=== PATIENT | female | born 1960 | race American Indian/Alaskan Native ===

== ENCOUNTER 2016-11-17 21:41 | Emergency (ER) | payer MEDICAID ==
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
[2016-11-18] MEDS ORDERED: FLEXERIL PO ONE (03:50)
[2016-11-18] MEDS ORDERED: MOTRIN PO ONE (03:50)
[2016-11-18 04:29] VITALS: BP 139/80
== END 2016-11-18 04:26 | disposition home or self-care (01) ==
LOC: ED 21:41 → EDBD 21:41 → ED 11-18 04:26
DX: M62.830 Muscle spasm of back (principal); M25.562 Pain in left knee; M54.2 Cervicalgia; I10 Essential (primary) hypertension; Z88.6 Allergy status to analgesic agent; Y04.8XXA Assault by other bodily force, initial encounter; Y93.89 Activity, other specified; Y92.89 Other specified places as the place of occurrence of the external cause; Y99.8 Other external cause status
CPT/HCPCS: 99282

== ENCOUNTER 2017-04-30 13:05 | Inpatient (IN) | payer MEDICAID ==
[2017-04-30] MEDS ORDERED: NACL 0.9% 1000 ML 1,000 ML ONE (13:13)
[2017-04-30] MEDS ORDERED: QUELICIN ONE (13:14)
[2017-04-30] MEDS ORDERED: AMIDATE IV ONE ×2 (13:14→13:26)
[2017-04-30] MEDS ORDERED: QUELICIN IV ONE (13:26)
[2017-04-30] MEDS ORDERED: ARTIFICIAL TEARS OPHTH OINT OU PRN ×2 (13:27→23:25)
[2017-04-30] MEDS ORDERED: VASELINE LIP THERAPY TP PRN ×2 (13:27→23:25)
[2017-04-30] MEDS ORDERED: ACTIDOSE-AQUA PO ONE (13:28)
[2017-04-30] MEDS ORDERED: ACTIDOSE SORBITOL PO ONE (13:28)
--- NOTE | 2017-04-30 13:32 | Emergency Department Report ---
ED Psych HPI - General Stated Complaint: MH EVAL Time Seen by Provider: 04/30/17 13:05 Source: EMS Mode of arrival: Stretcher Limitations: Altered Mental Status - History of Present Illness Initial Comments: 56-year-old female with a past medical history of hypertension and schizophrenia presents to the hospital with intentional overdose. EMS reports that patient was speaking to them upon arrival. She states around noon she took a handful of Zanaflex and Seroquel. Exact number of tablets unknown. Medication bottles available in the ED. Seroquel 200 mg tablets filled 04/30 30 tab now has 57 tabs in bottle. Zanaflex 4mg filled 04/21 30 tab now has 2 tablets in bottle pt should have about 20-21 tabs left in bottle. Patient became more sedated a route to the hospital as per EMS despite receiving Narcan 2 mg. Patient also hypotensive. IV fluids initiated prior to arrival. Daughter arrives to the ED after intubation and states that her mother wanted her to cosign for a loan. When her daughter refused she stated "I'm not going to need a loan where I am going" she took pills and informed her family member to call the ambulance if she does not wake up in one hour. They called after she informed them that she took the pills. He reported there were also pills on the floor in the home - Related Data Home Medications Medication Instructions Recorded Confirmed Last Taken Gabapentin [Neurontin] 300 mg PO Q8HR 04/30/17 04/30/17 Unknown Losartan/Hydrochlorothiazide 1 each PO DAILY 04/30/17 04/30/17 Unknown [Losartan-Hctz 50-12.5 mg Tab] QUEtiapine [SEROquel] 200 mg PO DAILY 04/30/17 04/30/17 Unknown amLODIPine [Norvasc] 5 mg PO DAILY 04/30/17 04/30/17 Unknown tiZANidine [Zanaflex] 4 mg PO DAILY 04/30/17 04/30/17 Unknown Allergies Allergy/AdvReac Type Severity Reaction Status Date / Time hydrocodone Allergy Itching Verified 11/17/16 21:47 ED Review of Systems ROS: Stated complaint: MH EVAL Other details as noted in HPI ED Past Medical Hx - Past Medical History Hx Hypertension: Yes - Surgical History Hx Cholecystectomy: Yes Additional Surgical History: UFE, - Social History Smoking Status: Never Smoker Substance Use Type: None - Medications Home Medications: Home Medications Medication Instructions Recorded Confirmed Last Taken Type Gabapentin [Neurontin] 300 mg PO Q8HR 04/30/17 04/30/17 Unknown History Losartan/Hydrochlorothiazide 1 each PO DAILY 04/30/17 04/30/17 Unknown History [Losartan-Hctz 50-12.5 mg Tab] QUEtiapine [SEROquel] 200 mg PO DAILY 04/30/17 04/30/17 Unknown History amLODIPine [Norvasc] 5 mg PO DAILY 04/30/17 04/30/17 Unknown History tiZANidine [Zanaflex] 4 mg PO DAILY 04/30/17 04/30/17 Unknown History ED Physical Exam - Other Other exam information: General: Limited by current mental status Head exam: Atraumatic, normocephalic Eyes exam: Pupils pinpoint and reactive ENT: Moist mucous membrane Neck exam: Normal inspection Respiratory exam: Clear to auscultation bilateral, no wheezes, rales, crackles Cardiovascular: Normal rate and rhythm Abdomen: Soft, nondistended, and nontender Extremity: Full range of motion normal inspection no deformity Back: Normal Inspection, full range of motion, no tenderness Neurologic: Lethargic, no localization of withdrawal pain. Patient does not open eyes to pain or voice. No spontaneous movement. With a GCS less than 8 seconds intubation is warranted Psychiatric: Unresponsive Skin: Warm, dry, intact ED Course Vital Signs 04/30/17 04/30/17 04/30/17 13:05 13:08 13:15 Temperature 98.1 F Pulse Rate 78 78 77 Respiratory 12 11 L Rate Blood Pressure 89/54 85/49 91/53 O2 Sat by Pulse 100 99 100 Oximetry 04/30/17 04/30/17 04/30/17 13:30 13:45 14:00 Temperature Pulse Rate 84 116 H 92 H Respiratory 16 16 16 Rate Blood Pressure 106/63 107/59 99/61 O2 Sat by Pulse 100 Oximetry 04/30/17 04/30/17 04/30/17 14:15 14:30 14:45 Temperature Pulse Rate 104 H 94 H 90 Respiratory 16 16 16 Rate Blood Pressure 104/64 107/66 109/74 O2 Sat by Pulse 100 100 100 Oximetry 04/30/17 04/30/17 04/30/17 15:00 15:15 15:30 Temperature Pulse Rate 88 90 117 H Respiratory 16 16 16 Rate Blood Pressure 109/72 118/75 101/61 O2 Sat by Pulse 100 100 Oximetry 04/30/17 04/30/17 04/30/17 15:45 16:00 16:15 Temperature Pulse Rate 95 H 107 H 99 H Respiratory 16 16 16 Rate Blood Pressure 118/67 114/58 120/60 O2 Sat by Pulse 100 100 100 Oximetry 04/30/17 04/30/17 16:30 16:53 Temperature Pulse Rate 99 H 110 H Respiratory 16 16 Rate Blood Pressure 121/64 107/57 O2 Sat by Pulse 100 Oximetry - Reevaluation(s) Reevaluation #1: 04/30/17 18:02 Blood pressure remained stable after IV fluid bolus Pt intubated without IV sedation and remains sedated at this time - Consultations Consultation #1: 04/30/17 13:45 case d/w Johanna with poison control Seroquel can cause seizures recommended benzos as needed Zanaflex can cause hypotension and respiratory depression. Symptomatic treatment advised Avoid antipsychotic (Haldol/Geodon) Recommended 4 hour postingestion aspirin and Tylenol - Intubation Time Out Performed: Yes Sedative: Etomidate Paralytic: Succinylcholine Laryngoscope: Braulio Size: 3 ET Tube Size: 7.5 Tube Secured Depth (cm): 23 Tube Secured Location: lips Tube Placement Confirmation: visualized tube passing t, equal breath sounds bilat, no breath sounds over epi, confirmation by capnometr Patient Tolerated Procedure: well Intubation Complications: none ED Medical Decision Making - Lab Data Result diagrams: 04/30/17 13:50 04/30/17 13:50 Lab Results 04/30/17 04/30/17 04/30/17 Range/Units 13:48 13:48 13:50 WBC 3.9 L (4.5-11.0) K/mm3 RBC 3.27 L (3.65-5.03) M/mm3 Hgb 10.9 (10.1-14.3) gm/dl Hct 32.0 (30.3-42.9) % MCV 98 H (79-97) fl MCH 33 H (28-32) pg MCHC 34 (30-34) % RDW 13.2 (13.2-15.2) % Plt Count 161 (140-440) K/mm3 Lymph % (Auto) 46.5 H (13.4-35.0) % [place] % (Auto) 12.2 H (0.0-7.3) % Eos % (Auto) 4.3 (0.0-4.3) % Baso % (Auto) 0.8 (0.0-1.8) % Lymph # 1.8 (1.2-5.4) K/mm3 [place] # 0.5 (0.0-0.8) K/mm3 Eos # 0.2 (0.0-0.4) K/mm3 Baso # 0.0 (0.0-0.1) K/mm3 Seg Neutrophils % 36.2 L (40.0-70.0) % Seg Neutrophils # 1.4 L (1.8-7.7) K/mm3 PT (12.2-14.9) Sec. INR (0.87-1.13) APTT (24.2-36.6) Sec. POC ABG pH (7.35-7.45) POC ABG pCO2 (35-45) POC ABG pO2 (80-105) POC ABG HCO3 POC ABG Total CO2 POC ABG O2 Sat POC ABG Base Excess FiO2 % Sodium (137-145) mmol/L Potassium (3.6-5.0) mmol/L Chloride (98-107) mmol/L Carbon Dioxide (22-30) mmol/L Anion Gap mmol/L BUN (7-17) mg/dL Creatinine (0.7-1.2) mg/dL Estimated GFR ml/min BUN/Creatinine Ratio % Glucose (65-100) mg/dL Calcium (8.4-10.2) mg/dL Magnesium (1.7-2.3) mg/dL Total Bilirubin (0.1-1.2) mg/dL AST (5-40) units/L ALT (7-56) units/L Alkaline Phosphatase (35-129) units/L Total Creatine Kinase (30-135) units/L CK-MB (CK-2) (0.0-4.0) ng/mL CK-MB (CK-2) Rel Index (0-4) Troponin T (0.00-0.029) ng/mL Total Protein (6.3-8.2) g/dL Albumin (3.9-5) g/dL Albumin/Globulin Ratio % Urine Color Yellow (Yellow) Urine Turbidity Clear (Clear) Urine pH 7.0 (5.0-7.0) Ur Specific [place] 1.008 (1.003-1.030) Urine Protein <15 mg/dl (Negative) mg/dL Urine Glucose (UA) Neg (Negative) mg/dL Urine Ketones Neg (Negative) mg/dL Urine Blood Neg (Negative) Urine Nitrite Neg (Negative) Urine Bilirubin Neg (Negative) Urine Urobilinogen < 2.0 (<2.0) mg/dL Ur Leukocyte Esterase Neg (Negative) Urine WBC (Auto) < 1.0 (0.0-6.0) /HPF Urine RBC (Auto) 1.0 (0.0-6.0) /HPF U Epithel Cells (Auto) < 1.0 (0-13.0) /HPF Salicylates (2.8-20.0) mg/dL Urine Opiates Screen Presumptive negative Urine Methadone Screen Presumptive negative Acetaminophen (10.0-30.0) ug/mL Ur Barbiturates Screen Presumptive negative Ur Phencyclidine Scrn Presumptive negative Ur Amphetamines Screen Presumptive negative U Benzodiazepines Scrn Presumptive negative Urine Cocaine Screen Presumptive negative U Marijuana (THC) Screen Presumptive negative Drugs of Abuse Note Disclamer 04/30/17 04/30/17 04/30/17 Range/Units 13:50 13:50 13:50 WBC (4.5-11.0) K/mm3 RBC (3.65-5.03) M/mm3 Hgb (10.1-14.3) gm/dl Hct (30.3-42.9) % MCV (79-97) fl MCH (28-32) pg MCHC (30-34) % RDW (13.2-15.2) % Plt Count (140-440) K/mm3 Lymph % (Auto) (13.4-35.0) % [place] % (Auto) (0.0-7.3) % Eos % (Auto) (0.0-4.3) % Baso % (Auto) (0.0-1.8) % Lymph # (1.2-5.4) K/mm3 [place] # (0.0-0.8) K/mm3 Eos # (0.0-0.4) K/mm3 Baso # (0.0-0.1) K/mm3 Seg Neutrophils % (40.0-70.0) % Seg Neutrophils # (1.8-7.7) K/mm3 PT 13.2 (12.2-14.9) Sec. INR 0.95 (0.87-1.13) APTT 30.5 (24.2-36.6) Sec. POC ABG pH (7.35-7.45) POC ABG pCO2 (35-45) POC ABG pO2 (80-105) POC ABG HCO3 POC ABG Total CO2 POC ABG O2 Sat POC ABG Base Excess FiO2 % Sodium 142 (137-145) mmol/L Potassium 3.2 L (3.6-5.0) mmol/L Chloride 104.8 (98-107) mmol/L Carbon Dioxide 23 (22-30) mmol/L Anion Gap 17 mmol/L BUN 13 (7-17) mg/dL Creatinine 0.5 L (0.7-1.2) mg/dL Estimated GFR > 60 ml/min BUN/Creatinine Ratio 26 % Glucose 123 H (65-100) mg/dL Calcium 7.6 L (8.4-10.2) mg/dL Magnesium 2.10 (1.7-2.3) mg/dL Total Bilirubin 0.30 (0.1-1.2) mg/dL AST 47 H (5-40) units/L ALT 26 (7-56) units/L Alkaline Phosphatase 51 (35-129) units/L Total Creatine Kinase 93 (30-135) units/L CK-MB (CK-2) < 1.0 (0.0-4.0) ng/mL CK-MB (CK-2) Rel Index 1.0 (0-4) Troponin T < 0.010 (0.00-0.029) ng/mL Total Protein 5.7 L (6.3-8.2) g/dL Albumin 3.5 L (3.9-5) g/dL Albumin/Globulin Ratio 1.6 % Urine Color (Yellow) Urine Turbidity (Clear) Urine pH (5.0-7.0) Ur Specific [place] (1.003-1.030) Urine Protein (Negative) mg/dL Urine Glucose (UA) (Negative) mg/dL Urine Ketones (Negative) mg/dL Urine Blood (Negative) Urine Nitrite (Negative) Urine Bilirubin (Negative) Urine Urobilinogen (<2.0) mg/dL Ur Leukocyte Esterase (Negative) Urine WBC (Auto) (0.0-6.0) /HPF Urine RBC (Auto) (0.0-6.0) /HPF U Epithel Cells (Auto) (0-13.0) /HPF Salicylates < 0.3 L (2.8-20.0) mg/dL Urine Opiates Screen Urine Methadone Screen Acetaminophen (10.0-30.0) ug/mL Ur Barbiturates Screen Ur Phencyclidine Scrn Ur Amphetamines Screen U Benzodiazepines Scrn Urine Cocaine Screen U Marijuana (THC) Screen Drugs of Abuse Note 04/30/17 04/30/17 04/30/17 Range/Units 15:33 15:33 15:37 WBC (4.5-11.0) K/mm3 RBC (3.65-5.03) M/mm3 Hgb (10.1-14.3) gm/dl Hct (30.3-42.9) % MCV (79-97) fl MCH (28-32) pg MCHC (30-34) % RDW (13.2-15.2) % Plt Count (140-440) K/mm3 Lymph % (Auto) (13.4-35.0) % [place] % (Auto) (0.0-7.3) % Eos % (Auto) (0.0-4.3) % Baso % (Auto) (0.0-1.8) % Lymph # (1.2-5.4) K/mm3 [place] # (0.0-0.8) K/mm3 Eos # (0.0-0.4) K/mm3 Baso # (0.0-0.1) K/mm3 Seg Neutrophils % (40.0-70.0) % Seg Neutrophils # (1.8-7.7) K/mm3 PT (12.2-14.9) Sec. INR (0.87-1.13) APTT (24.2-36.6) Sec. POC ABG pH 7.410 (7.35-7.45) POC ABG pCO2 38.4 (35-45) POC ABG pO2 197 H (80-105) POC ABG HCO3 24.3 POC ABG Total CO2 25 POC ABG O2 Sat 100 POC ABG Base Excess 0 FiO2 50 % Sodium (137-145) mmol/L Potassium (3.6-5.0) mmol/L Chloride (98-107) mmol/L Carbon Dioxide (22-30) mmol/L Anion Gap mmol/L BUN (7-17) mg/dL Creatinine (0.7-1.2) mg/dL Estimated GFR ml/min BUN/Creatinine Ratio % Glucose (65-100) mg/dL Calcium (8.4-10.2) mg/dL Magnesium (1.7-2.3) mg/dL Total Bilirubin (0.1-1.2) mg/dL AST (5-40) units/L ALT (7-56) units/L Alkaline Phosphatase (35-129) units/L Total Creatine Kinase (30-135) units/L CK-MB (CK-2) (0.0-4.0) ng/mL CK-MB (CK-2) Rel Index (0-4) Troponin T (0.00-0.029) ng/mL Total Protein (6.3-8.2) g/dL Albumin (3.9-5) g/dL Albumin/Globulin Ratio % Urine Color (Yellow) Urine Turbidity (Clear) Urine pH (5.0-7.0) Ur Specific [place] (1.003-1.030) Urine Protein (Negative) mg/dL Urine Glucose (UA) (Negative) mg/dL Urine Ketones (Negative) mg/dL Urine Blood (Negative) Urine Nitrite (Negative) Urine Bilirubin (Negative) Urine Urobilinogen (<2.0) mg/dL Ur Leukocyte Esterase (Negative) Urine WBC (Auto) (0.0-6.0) /HPF Urine RBC (Auto) (0.0-6.0) /HPF U Epithel Cells (Auto) (0-13.0) /HPF Salicylates < 0.3 L (2.8-20.0) mg/dL Urine Opiates Screen Urine Methadone Screen Acetaminophen 15.0 (10.0-30.0) ug/mL Ur Barbiturates Screen Ur Phencyclidine Scrn Ur Amphetamines Screen U Benzodiazepines Scrn Urine Cocaine Screen U Marijuana (THC) Screen Drugs of Abuse Note - EKG Data -: EKG Interpreted by Me EKG shows normal: sinus rhythm, axis (40), intervals (qtc 463), QRS complexes ( 81), ST-T waves (no stemi) Rate: normal (97) - EKG Data When compared to previous EKG there are: previous EKG unavailable - Radiology Data Radiology results: report reviewed Read by radiologist Chest x-ray: Unremarkable AP chest. ET tube terminates 3.8 cm superior to the jose miguel - Medical Decision Making pt remains sedated Ct head naf no coingestions Pt intubated for airway protection Iv KCL ordered for mild hypokalemia abg without acid base disturbance Pt will be admitted for further treatment. Remains obtunded but BP stable - Differential Diagnosis overdose, suicide attempt, ICH, encephalopathy Critical Care Time: No Critical care attestation.: If time is entered above; I have spent that time in minutes in the direct care of this critically ill patient, excluding procedure time. ED Disposition Clinical Impression: Suicide attempt by substance overdose, Obtunded, Hypokalemia Disposition: DC-01 TO HOME OR SELFCARE Is pt being admited?: Yes Does the pt Need Aspirin: No Condition: Fair Time of Disposition: 18:06 (Dr Adorno/hosp)
[2017-04-30] MEDS ORDERED: NACL 0.9% 500 ML IV SCH ×2 (14:00→23:45)
[2017-04-30 14:09] LABS: Bilirubin,Urine NEG (Negative); Blood,Urine NEG (Negative); Color,Urine Yellow (Yellow); Nitrite,Urine NEG (Negative); Protein,Urine <15 mg/dL mg/dL (Negative); Urobilinogen,Urine < 2.0 mg/dL (<2.0); WBC,Urine < 1.0 /HPF (0.0-6.0)
[2017-04-30 14:36] LABS: Basophils % (Auto) 0.8 % (0.0-1.8); Eosinophils # (Auto) 0.2 K/mm3 (0.0-0.4); Eosinophils % (Auto) 4.3 % (0.0-4.3); Hemoglobin 10.9 gm/dl (10.1-14.3); Lymphocytes # (Auto) 1.8 K/mm3 (1.2-5.4); Lymphocytes % (Auto) 46.5 % (13.4-35.0); Mean Corpuscular HGB Conc 34 % (30-34); Mean Corpuscular Hemoglobin 33 pg (28-32); Mean Corpuscular Volume 98 fl (79-97); Monocytes # (Auto) 0.5 K/mm3 (0.0-0.8); Monocytes % (Auto) 12.2 % (0.0-7.3); Platelet Count 161 K/mm3 (140-440); Red Blood Count 3.27 M/mm3 (3.65-5.03); Red Cell Distribution Width 13.2 % (13.2-15.2)
[2017-04-30 14:47] LABS: Amphetamine Screen,Urine PRESUMPTIVE NEGATIVE; Benzodiazepines Screen,Urine PRESUMPTIVE NEGATIVE; Cannabinoid Screen,Urine PRESUMPTIVE NEGATIVE; Cocaine Screen,Urine PRESUMPTIVE NEGATIVE; Methadone Screen,Urine PRESUMPTIVE NEGATIVE; Opiate Screen,Urine PRESUMPTIVE NEGATIVE
[2017-04-30 14:52] LABS: Alanine Aminotransferase 26 units/L (7-56); Albumin 3.5 g/dL (3.9-5); BUN/Creatinine Ratio 26; Blood Urea Nitrogen 13 mg/dL (7-17); Calcium 7.6 mg/dL (8.4-10.2); Hemolysis Index 28
[2017-04-30 14:55] LABS: Creatine Kinase MB < 1.0 ng/mL (0.0-4.0)
[2017-04-30 15:25] LABS: INR 0.95 (0.87-1.13)
[2017-04-30 15:26] LABS: Partial Thromboplastin Time 30.5 Sec. (24.2-36.6)
--- NOTE | 2017-04-30 15:43 | XRay Report ---
AP CHEST: HISTORY: Endotracheal tube placement The endotracheal tube terminates 3.8 cm superior to the jose miguel. P view of the chest demonstrates a normal mediastinal and cardiac contour with clear lungs and normal bony and soft tissue structures. IMPRESSION: Unremarkable AP chest.
[2017-04-30] MEDS ORDERED: KCL 10MEQ/100ML 10 MEQ/100 ML BAG IV SCH (17:00)
--- NOTE | 2017-04-30 17:23 | Cat Scan Report ---
FINAL REPORT EXAM: CT HEAD/BRAIN WO CON HISTORY: ams, overdose TECHNIQUE: CT examination of the head without IV contrast PRIORS: None. FINDINGS: Slight mucosal thickening maxillary and ethmoid sinuses. No acute air-fluid level visualized in the included air-filled sinuses. Bone windows demonstrate no acute fracture. The brain is without mass, mass effect, hemorrhage, or acute infarct. There is no extra-axial intracranial bleed, brain bleed, or midline shift. The ventricles and sulci are age-appropriate. IMPRESSION: No acute CVA, intracranial bleed, or brain mass
[2017-04-30] MEDS ORDERED: KCL 40 MEQ in NACL 0.9% 500 ML 500 ML IV ONE (17:45)
[2017-04-30] MEDS ORDERED: NACL 0.9% 1000 ML 1,000 ML IV ONE (18:45)
--- NOTE | 2017-04-30 23:15 | History and Physical Report ---
History of Present Illness Date of examination: 04/30/17 Date of admission: 04/30/17 18:55 Chief complaint: Intentional drug overdose / suicide attempt History of present illness: 56-year-old female with a past medical history of hypertension and schizophrenia presents to the hospital with intentional overdose. EMS reports that patient was speaking to them upon arrival. She states around noon she took a handful of Zanaflex and Seroquel. Exact number of tablets unknown. Medication bottles available in the ED. Seroquel 200 mg tablets filled 04/30 30 tab now has 57 tabs in bottle. Zanaflex 4mg filled 04/21 30 tab now has 2 tablets in bottle pt should have about 20-21 tabs left in bottle. Patient became more sedated a route to the hospital as per EMS despite receiving Narcan 2 mg. Patient also hypotensive. IV fluids initiated prior to arrival. Daughter arrives to the ED after intubation and states that her mother wanted her to cosign for a loan. When her daughter refused she stated "I'm not going to need a loan where I am going" she took pills and informed her family member to call the ambulance if she does not wake up in one hour. They called after she informed them that she took the pills. He reported there were also pills on the floor in the home Past History Past Medical History: hypertension Past Surgical History: cholecystectomy Medications and Allergies Allergies Allergy/AdvReac Type Severity Reaction Status Date / Time hydrocodone Allergy Itching Verified 11/17/16 21:47 Home Medications Medication Instructions Recorded Confirmed Last Taken Type Gabapentin [Neurontin] 300 mg PO Q8HR 04/30/17 04/30/17 Unknown History Losartan/Hydrochlorothiazide 1 each PO DAILY 04/30/17 04/30/17 Unknown History [Losartan-Hctz 50-12.5 mg Tab] QUEtiapine [SEROquel] 200 mg PO DAILY 04/30/17 04/30/17 Unknown History amLODIPine [Norvasc] 5 mg PO DAILY 04/30/17 04/30/17 Unknown History tiZANidine [Zanaflex] 4 mg PO DAILY 04/30/17 04/30/17 Unknown History Active Meds: Active Medications Hydrophilic Ointment (Vaseline Lip Therapy) 1 applic TP Q2HR PRN PRN Reason: Dry Lips Multi-Ingred Cream/Lotion/Oil/Oint (Artificial Tears Ophth Oint) 1 applic OU Q4HR PRN PRN Reason: Dry Eye(s) Sodium Chloride (Nacl 0.9% 500 Ml) 1 ml IV DIRECT DREW Last Admin: 04/30/17 14:22 Dose: 1 ml Review of Systems ROS unobtainable: due to endotracheal tube Exam - Physical Exam Narrative exam: General: the patient is intubated HEENT: Pinpoint pupils patient has oral ET tube Head is atraumatic normocephalic ,. Neck: no JVD no thyromegaly or lymphadenopathy. Heart: Regular rate and rhythm no murmurs or gallops. S1 and S2 normal. PMI not displaced. Lungs: On mechanical ventilation. But otherwise clear to auscultation bilaterally. No rales rhonchi wheezing. Abdomen: Soft, nondistended, and nontender. Normoactive bowel sounds. No hepatosplenomegaly. No abdominal masses or bruit appreciated. Extremities: No cyanosis/clubbing/ edema. Musculoskeletal: No obvious deformity or swelling Neurological: Limited exam. Patient is sedated and intubated Skin: Warm and dry no rashes or bruises. Psychiatric: Could not be assessed due to chemical sedation Vascular system: No lymphadenopathy. Distal pulses 2+ bilaterally. - Constitutional Vitals: Temp Pulse Resp BP Pulse Ox 98.1 F 95 H 16 115/72 100 04/30/17 13:05 04/30/17 21:12 04/30/17 19:30 04/30/17 21:12 04/30/17 21:12 Results - Labs CBC & Chem 7: 04/30/17 13:50 04/30/17 13:50 Labs: Laboratory Last Values WBC 3.9 K/mm3 (4.5-11.0) L 04/30/17 13:50 RBC 3.27 M/mm3 (3.65-5.03) L 04/30/17 13:50 Hgb 10.9 gm/dl (10.1-14.3) 04/30/17 13:50 Hct 32.0 % (30.3-42.9) 04/30/17 13:50 MCV 98 fl (79-97) H 04/30/17 13:50 MCH 33 pg (28-32) H 04/30/17 13:50 MCHC 34 % (30-34) 04/30/17 13:50 RDW 13.2 % (13.2-15.2) 04/30/17 13:50 Plt Count 161 K/mm3 (140-440) 04/30/17 13:50 Lymph % (Auto) 46.5 % (13.4-35.0) H 04/30/17 13:50 [place] % (Auto) 12.2 % (0.0-7.3) H 04/30/17 13:50 Eos % (Auto) 4.3 % (0.0-4.3) 04/30/17 13:50 Baso % (Auto) 0.8 % (0.0-1.8) 04/30/17 13:50 Lymph # 1.8 K/mm3 (1.2-5.4) 04/30/17 13:50 [place] # 0.5 K/mm3 (0.0-0.8) 04/30/17 13:50 Eos # 0.2 K/mm3 (0.0-0.4) 04/30/17 13:50 Baso # 0.0 K/mm3 (0.0-0.1) 04/30/17 13:50 Seg Neutrophils % 36.2 % (40.0-70.0) L 04/30/17 13:50 Seg Neutrophils # 1.4 K/mm3 (1.8-7.7) L 04/30/17 13:50 PT 13.2 Sec. (12.2-14.9) 04/30/17 13:50 INR 0.95 (0.87-1.13) 04/30/17 13:50 APTT 30.5 Sec. (24.2-36.6) 04/30/17 13:50 POC ABG pH 7.410 (7.35-7.45) 04/30/17 15:37 POC ABG pCO2 38.4 (35-45) 04/30/17 15:37 POC ABG pO2 197 (80-105) H 04/30/17 15:37 POC ABG HCO3 24.3 04/30/17 15:37 POC ABG Total CO2 25 04/30/17 15:37 POC ABG O2 Sat 100 04/30/17 15:37 POC ABG Base Excess 0 04/30/17 15:37 FiO2 50 % 04/30/17 15:37 Sodium 142 mmol/L (137-145) 04/30/17 13:50 Potassium 3.2 mmol/L (3.6-5.0) L 04/30/17 13:50 Chloride 104.8 mmol/L (98-107) 04/30/17 13:50 Carbon Dioxide 23 mmol/L (22-30) 04/30/17 13:50 Anion Gap 17 mmol/L 04/30/17 13:50 BUN 13 mg/dL (7-17) 04/30/17 13:50 Creatinine 0.5 mg/dL (0.7-1.2) L 04/30/17 13:50 Estimated GFR > 60 ml/min 04/30/17 13:50 BUN/Creatinine Ratio 26 % 04/30/17 13:50 Glucose 123 mg/dL (65-100) H 04/30/17 13:50 Calcium 7.6 mg/dL (8.4-10.2) L 04/30/17 13:50 Magnesium 2.10 mg/dL (1.7-2.3) 04/30/17 13:50 Total Bilirubin 0.30 mg/dL (0.1-1.2) 04/30/17 13:50 AST 47 units/L (5-40) H 04/30/17 13:50 ALT 26 units/L (7-56) 04/30/17 13:50 Alkaline Phosphatase 51 units/L (35-129) 04/30/17 13:50 Total Creatine Kinase 93 units/L (30-135) 04/30/17 13:50 CK-MB (CK-2) < 1.0 ng/mL (0.0-4.0) 04/30/17 13:50 CK-MB (CK-2) Rel Index 1.0 (0-4) 04/30/17 13:50 Troponin T < 0.010 ng/mL (0.00-0.029) 04/30/17 13:50 Total Protein 5.7 g/dL (6.3-8.2) L 04/30/17 13:50 Albumin 3.5 g/dL (3.9-5) L 04/30/17 13:50 Albumin/Globulin Ratio 1.6 % 04/30/17 13:50 Urine Color Yellow (Yellow) 04/30/17 13:48 Urine Turbidity Clear (Clear) 04/30/17 13:48 Urine pH 7.0 (5.0-7.0) 04/30/17 13:48 Ur Specific [place] 1.008 (1.003-1.030) 04/30/17 13:48 Urine Protein <15 mg/dl mg/dL (Negative) 04/30/17 13:48 Urine Glucose (UA) Neg mg/dL (Negative) 04/30/17 13:48 Urine Ketones Neg mg/dL (Negative) 04/30/17 13:48 Urine Blood Neg (Negative) 04/30/17 13:48 Urine Nitrite Neg (Negative) 04/30/17 13:48 Urine Bilirubin Neg (Negative) 04/30/17 13:48 Urine Urobilinogen < 2.0 mg/dL (<2.0) 04/30/17 13:48 Ur Leukocyte Esterase Neg (Negative) 04/30/17 13:48 Urine WBC (Auto) < 1.0 /HPF (0.0-6.0) 04/30/17 13:48 Urine RBC (Auto) 1.0 /HPF (0.0-6.0) 04/30/17 13:48 U Epithel Cells (Auto) < 1.0 /HPF (0-13.0) 04/30/17 13:48 Salicylates < 0.3 mg/dL (2.8-20.0) L 04/30/17 15:33 Urine Opiates Screen Presumptive negative 04/30/17 13:48 Urine Methadone Screen Presumptive negative 04/30/17 13:48 Acetaminophen < 15.0 ug/mL (10.0-30.0) 04/30/17 19:00 Ur Barbiturates Screen Presumptive negative 04/30/17 13:48 Ur Phencyclidine Scrn Presumptive negative 04/30/17 13:48 Ur Amphetamines Screen Presumptive negative 04/30/17 13:48 U Benzodiazepines Scrn Presumptive negative 04/30/17 13:48 Urine Cocaine Screen Presumptive negative 04/30/17 13:48 U Marijuana (THC) Screen Presumptive negative 04/30/17 13:48 Drugs of Abuse Note Disclamer 04/30/17 13:48 - Imaging and Cardiology EKG: other (EKG shows normal: sinus rhythm, axis (40), intervals (qtc 463), QRS complexes (81), ST-T waves (no stemi)) Imaging and Cardiology: X-ray showing no acute pulmonary process Assessment and Plan Assessment and plan: Assessment and plan - * Suicide attempt * Intentional drug overdose * Hypokalemia * Hypertension Plan - Admit to ICU continue mechanical ventilation and chemical sedation Start patient on propofol drip Mental health eval been medically stable Blood pressures are currently stable monitor vital signs closely and give when necessary hydralazine if needed or indicated Monitor CBC and electrolytes Repeat his potassium and monitor Replace all electrolytes when necessary as per protocol DVT GI prophylaxis as ordered Monitor and follow the patient closely
[2017-04-30] MEDS ORDERED: D50W (25GM) Syringe IV PRN (23:24)
[2017-04-30] MEDS ORDERED: PROVENTIL IH PRN (23:24)
[2017-04-30] MEDS ORDERED: D5NS 1,000 ML IV SCH (23:45)
[2017-04-30] MEDS ORDERED: DIPRIVAN 10 MG/ML 1,000 MG/100 ML BOTTLE IV SCH (23:45)
--- NOTE | 2017-05-01 00:10 | XRay Report ---
FINAL REPORT PROCEDURE: XR CHEST 1V AP TECHNIQUE: Chest radiograph anteroposterior view. CPT 03787 HISTORY: ETT placement COMPARISON: No prior studies are available for comparison. FINDINGS: Heart: Normal. Mediastinum/Vessels: Normal. Lungs/Pleural space: There is patchy bibasilar atelectasis or infiltrate. No effusion or pneumothorax is seen.. Bony thorax: No acute osseous abnormality. Life support devices: The endotracheal tube tip projects 3 centimeters superior to the jose miguel. The nasogastric tube is coiled in the stomach. IMPRESSION: Endotracheal tube tip projects 3 centimeters superior to the jose miguel.
[2017-05-01] MEDS ORDERED: DUONEB *Not for PRN Use IH ONE (01:11)
[2017-05-01] MEDS: DUONEB *Not for PRN Use IH SCH ×2 (01:16→08:10)
[2017-05-01 03:20] LABS: Alanine Aminotransferase 27 units/L (7-56); Albumin 3.9 g/dL (3.9-5); BUN/Creatinine Ratio 15; Blood Urea Nitrogen 6 mg/dL (7-17); Calcium 7.7 mg/dL (8.4-10.2); Hemolysis Index 14
[2017-05-01 03:21] LABS: Basophils % (Auto) 0.4 % (0.0-1.8); Eosinophils # (Auto) 0.1 K/mm3 (0.0-0.4); Hematocrit 36.6 % (30.3-42.9); Hemoglobin 12.4 gm/dl (10.1-14.3); Lymphocytes # (Auto) 0.7 K/mm3 (1.2-5.4); Lymphocytes % (Auto) 11.9 % (13.4-35.0); Mean Corpuscular HGB Conc 34 % (30-34); Mean Corpuscular Hemoglobin 33 pg (28-32); Mean Corpuscular Volume 97 fl (79-97); Monocytes # (Auto) 0.6 K/mm3 (0.0-0.8); Monocytes % (Auto) 10.6 % (0.0-7.3); Platelet Count 161 K/mm3 (140-440); Red Blood Count 3.79 M/mm3 (3.65-5.03); Red Cell Distribution Width 13.6 % (13.2-15.2)
[2017-05-01] MEDS ORDERED: DIPRIVAN 10 MG/ML 1,000 MG/100 ML BOTTLE IV ONE (03:37)
[2017-05-01 05:45] LABS: Magnesium 1.8 mg/dL (1.7-2.3)
--- NOTE | 2017-05-01 09:24 | Consultation ---
History of Present Illness Consult date: 05/01/17 Requesting physician: SHABNAM HEBERT Reason for consult: other (acute respiratory failure secondary to intentional overdose) History of present illness: 56 y/o female with psych history admitted with intentional overdose. based on ED documentation patient was unresponsive and was intubated for airway protection. later that evening patient was started on diprovan. It is unclear based on the documentation as to why. CXR clear and ABG is normal. Patient brought up to CCU this am. I asked nursing to discontinue diprovan. Past History Past Medical History: hypertension Past Surgical History: cholecystectomy Medications and Allergies Allergies Allergy/AdvReac Type Severity Reaction Status Date / Time hydrocodone Allergy Itching Verified 11/17/16 21:47 Home Medications Medication Instructions Recorded Confirmed Last Taken Type Gabapentin [Neurontin] 300 mg PO Q8HR 04/30/17 04/30/17 Unknown History Losartan/Hydrochlorothiazide 1 each PO DAILY 04/30/17 04/30/17 Unknown History [Losartan-Hctz 50-12.5 mg Tab] QUEtiapine [SEROquel] 200 mg PO DAILY 04/30/17 04/30/17 Unknown History amLODIPine [Norvasc] 5 mg PO DAILY 04/30/17 04/30/17 Unknown History tiZANidine [Zanaflex] 4 mg PO DAILY 04/30/17 04/30/17 Unknown History Active Meds: Active Medications Albuterol (Proventil) 2.5 mg IH Q3HRT PRN PRN Reason: Shortness Of Breath Albuterol/Ipratropium (Duoneb *Not For Prn Use*) 1 ampul IH Q6HRT PENDING SALE TO [facility] Last Admin: 05/01/17 08:10 Dose: 1 ampul Dextrose (D50w (25gm) Syringe) 50 ml IV PRN PRN PRN Reason: Hypoglycemia Enoxaparin Sodium (Lovenox) 40 mg SUB-Q QDAY DREW Famotidine (Pepcid) 20 mg IV BID DREW Hydrophilic Ointment (Vaseline Lip Therapy) 1 applic TP Q2HR PRN PRN Reason: Dry Lips Dextrose/Sodium Chloride (D5ns) 1,000 mls @ 125 mls/hr IV DIRECT DREW Propofol (Diprivan 10 Mg/Ml) 1,000 mg in 100 mls @ 3.13 mls/hr IV TITR DREW; 5 MCG/KG/MIN PRN Reason: Protocol Last Titration: 05/01/17 08:21 Dose: Infused Multi-Ingred Cream/Lotion/Oil/Oint (Artificial Tears Ophth Oint) 1 applic OU Q4HR PRN PRN Reason: Dry Eye(s) Sodium Chloride (Nacl 0.9% 500 Ml) 1 ml IV DIRECT DREW Review of Systems ROS unobtainable: due to endotracheal tube, due to mental status Physical Examination Vital signs: Vital Signs Temp Pulse BP Pulse Ox 98.1 F 78 89/54 100 04/30/17 13:05 04/30/17 13:05 04/30/17 13:05 04/30/17 13:05 General appearance: no acute distress, comatose Eyes: non-icteric ENT: other (orally intubated and sedated) Neck: supple Effort: normal Ascultation: Bilateral: clear Percussion: Bilateral: not dull Cardiovascular: regular rate and rhythm Gastrointestinal: normoactive bowel sounds, soft, non-tender Extremities: no cyanosis, no edema, pink and warm, pulses normal unable to assess Results - Laboratory Findings CBC and BMP: 05/01/17 02:45 05/01/17 02:45 ABG POC ABG pH 7.397 (7.35-7.45) 05/01/17 05:41 POC ABG pCO2 43.5 (35-45) 05/01/17 05:41 POC ABG pO2 147 (80-105) H 05/01/17 05:41 POC ABG HCO3 26.8 05/01/17 05:41 POC ABG Total CO2 28 05/01/17 05:41 POC ABG O2 Sat 99 05/01/17 05:41 PT/INR, D-dimer PT 13.2 Sec. (12.2-14.9) 04/30/17 13:50 INR 0.95 (0.87-1.13) 04/30/17 13:50 Abnormal lab findings: Abnormal Labs 04/30/17 04/30/17 04/30/17 13:50 13:50 13:50 WBC 3.9 L RBC 3.27 L MCV 98 H MCH 33 H Lymph % (Auto) 46.5 H [facility] % (Auto) 12.2 H Lymph # Seg Neutrophils % 36.2 L Seg Neutrophils # 1.4 L POC ABG pO2 Potassium 3.2 L BUN Creatinine 0.5 L Glucose 123 H Calcium 7.6 L Phosphorus AST 47 H Total Protein 5.7 L Albumin 3.5 L Salicylates < 0.3 L 04/30/17 04/30/17 05/01/17 15:33 15:37 02:45 WBC RBC MCV MCH 33 H Lymph % (Auto) 11.9 L [facility] % (Auto) 10.6 H Lymph # 0.7 L Seg Neutrophils % 75.1 H Seg Neutrophils # POC ABG pO2 197 H Potassium BUN Creatinine Glucose Calcium Phosphorus AST Total Protein Albumin Salicylates < 0.3 L 05/01/17 05/01/17 05/01/17 02:45 04:59 05:41 WBC RBC MCV MCH Lymph % (Auto) [facility] % (Auto) Lymph # Seg Neutrophils % Seg Neutrophils # POC ABG pO2 147 H Potassium 3.5 L BUN 6 L Creatinine 0.4 L Glucose 115 H Calcium 7.7 L Phosphorus 2.40 L AST Total Protein 6.2 L Albumin Salicylates - Diagnostic Findings Chest x-ray: image reviewed (clear) Assessment and Plan 56 y/o female with acute respiratory failure secondary to intentional overdose, suicide attempt. 1. Stop diprovan 2. Extubate once awake 3. Psych eval 4. Bedside swallow 5. Restart home meds. CCT 31 minutes.
[2017-05-01] MEDS ORDERED: LOVENOX SUB-Q SCH (10:00)
[2017-05-01] MEDS ORDERED: PEPCID IV SCH (10:00)
[2017-05-01] MEDS ORDERED: KCL 10MEQ/100ML 10 MEQ/100 ML BAG IV SCH (10:00)
[2017-05-01] MEDS ORDERED: PROTONIX IV SCH (10:00)
[2017-05-01] MEDS ORDERED: MAGNESIUM SULFATE 2GM/50ML 2 GM/50 ML BAG IV ONE (11:00)
[2017-05-01] MEDS ORDERED: POTASSIUM CHLORIDE FEEDTUBE ONE ×2 (11:00)
--- NOTE | 2017-05-01 15:26 | Progress Note ---
Assessment and Plan Assessment and plan: Suicidal attempt Drug overdose Respiratory distress Altered mental status - Currently patient is alert and oriented not in pulmonary distress - Patient was extubated - Pending psychiatric evaluation DVT prophylaxis - Lovenox Disposition - discharge after psychiatric evaluation. History Interval history: Patient was seen and evaluated this morning, patient was extubated this morning and not in pulmonary distress. Hospitalist Physical - Physical exam Narrative exam: Not in cardiopulmonary distress. The patient appeared well nourished and normally developed. Vital signs as documented. Head exam is unremarkable. No scleral icterus . Neck is without jugular venous distension, thyromegaly, or carotid bruits. Lungs are clear to auscultation. Cardiac exam reveals regular rate and Rhythm. First and second heart sounds normal. No murmurs, rubs or gallops. Abdominal exam reveals normal bowel sounds, no masses, no organomegaly and no aortic enlargement. Extremities are nonedematous and both femoral and pedal pulses are normal. DIRECTOR OF RESEARCH AND DEVELOPMENT: Alert and oriented 3. No focal weakness. - Constitutional Vitals: Temp Pulse Resp BP Pulse Ox 97.7 F 92 H 15 144/54 97 05/01/17 12:00 05/01/17 10:51 05/01/17 10:51 05/01/17 10:51 05/01/17 13:43 Results - Labs CBC & Chem 7: 05/01/17 02:45 05/01/17 02:45 Labs: Laboratory Last Values WBC 5.5 K/mm3 (4.5-11.0) 05/01/17 02:45 RBC 3.79 M/mm3 (3.65-5.03) 05/01/17 02:45 Hgb 12.4 gm/dl (10.1-14.3) 05/01/17 02:45 Hct 36.6 % (30.3-42.9) 05/01/17 02:45 MCV 97 fl (79-97) 05/01/17 02:45 MCH 33 pg (28-32) H 05/01/17 02:45 MCHC 34 % (30-34) 05/01/17 02:45 RDW 13.6 % (13.2-15.2) 05/01/17 02:45 Plt Count 161 K/mm3 (140-440) 05/01/17 02:45 Lymph % (Auto) 11.9 % (13.4-35.0) L 05/01/17 02:45 [place] % (Auto) 10.6 % (0.0-7.3) H 05/01/17 02:45 Eos % (Auto) 2.0 % (0.0-4.3) 05/01/17 02:45 Baso % (Auto) 0.4 % (0.0-1.8) 05/01/17 02:45 Lymph # 0.7 K/mm3 (1.2-5.4) L 05/01/17 02:45 [place] # 0.6 K/mm3 (0.0-0.8) 05/01/17 02:45 Eos # 0.1 K/mm3 (0.0-0.4) 05/01/17 02:45 Baso # 0.0 K/mm3 (0.0-0.1) 05/01/17 02:45 Seg Neutrophils % 75.1 % (40.0-70.0) H 05/01/17 02:45 Seg Neutrophils # 4.1 K/mm3 (1.8-7.7) 05/01/17 02:45 PT 13.2 Sec. (12.2-14.9) 04/30/17 13:50 INR 0.95 (0.87-1.13) 04/30/17 13:50 APTT 30.5 Sec. (24.2-36.6) 04/30/17 13:50 POC ABG pH 7.397 (7.35-7.45) 05/01/17 05:41 POC ABG pCO2 43.5 (35-45) 05/01/17 05:41 POC ABG pO2 147 (80-105) H 05/01/17 05:41 POC ABG HCO3 26.8 05/01/17 05:41 POC ABG Total CO2 28 05/01/17 05:41 POC ABG O2 Sat 99 05/01/17 05:41 POC ABG Base Excess 2 05/01/17 05:41 FiO2 35 % 05/01/17 05:41 Sodium 141 mmol/L (137-145) 05/01/17 02:45 Potassium 3.5 mmol/L (3.6-5.0) L 05/01/17 02:45 Chloride 103.1 mmol/L (98-107) 05/01/17 02:45 Carbon Dioxide 23 mmol/L (22-30) 05/01/17 02:45 Anion Gap 18 mmol/L 05/01/17 02:45 BUN 6 mg/dL (7-17) L 05/01/17 02:45 Creatinine 0.4 mg/dL (0.7-1.2) L 05/01/17 02:45 Estimated GFR > 60 ml/min 05/01/17 02:45 BUN/Creatinine Ratio 15 % 05/01/17 02:45 Glucose 115 mg/dL (65-100) H 05/01/17 02:45 POC Glucose 116 (70-105) H 05/01/17 09:21 Hemoglobin A1c 4.9 % (4-6) 05/01/17 02:45 Calcium 7.7 mg/dL (8.4-10.2) L 05/01/17 02:45 Phosphorus 2.40 mg/dL (2.5-4.5) L 05/01/17 04:59 Magnesium 1.80 mg/dL (1.7-2.3) 05/01/17 04:59 Total Bilirubin 0.40 mg/dL (0.1-1.2) 05/01/17 02:45 AST 32 units/L (5-40) 05/01/17 02:45 ALT 27 units/L (7-56) 05/01/17 02:45 Alkaline Phosphatase 61 units/L (35-129) 05/01/17 02:45 Total Creatine Kinase 93 units/L (30-135) 04/30/17 13:50 CK-MB (CK-2) < 1.0 ng/mL (0.0-4.0) 04/30/17 13:50 CK-MB (CK-2) Rel Index 1.0 (0-4) 04/30/17 13:50 Troponin T < 0.010 ng/mL (0.00-0.029) 04/30/17 13:50 Total Protein 6.2 g/dL (6.3-8.2) L 05/01/17 02:45 Albumin 3.9 g/dL (3.9-5) 05/01/17 02:45 Albumin/Globulin Ratio 1.7 % 05/01/17 02:45 Urine Color Yellow (Yellow) 04/30/17 13:48 Urine Turbidity Clear (Clear) 04/30/17 13:48 Urine pH 7.0 (5.0-7.0) 04/30/17 13:48 Ur Specific [place] 1.008 (1.003-1.030) 04/30/17 13:48 Urine Protein <15 mg/dl mg/dL (Negative) 04/30/17 13:48 Urine Glucose (UA) Neg mg/dL (Negative) 04/30/17 13:48 Urine Ketones Neg mg/dL (Negative) 04/30/17 13:48 Urine Blood Neg (Negative) 04/30/17 13:48 Urine Nitrite Neg (Negative) 04/30/17 13:48 Urine Bilirubin Neg (Negative) 04/30/17 13:48 Urine Urobilinogen < 2.0 mg/dL (<2.0) 04/30/17 13:48 Ur Leukocyte Esterase Neg (Negative) 04/30/17 13:48 Urine WBC (Auto) < 1.0 /HPF (0.0-6.0) 04/30/17 13:48 Urine RBC (Auto) 1.0 /HPF (0.0-6.0) 04/30/17 13:48 U Epithel Cells (Auto) < 1.0 /HPF (0-13.0) 04/30/17 13:48 Salicylates < 0.3 mg/dL (2.8-20.0) L 04/30/17 15:33 Urine Opiates Screen Presumptive negative 04/30/17 13:48 Urine Methadone Screen Presumptive negative 04/30/17 13:48 Acetaminophen < 15.0 ug/mL (10.0-30.0) 04/30/17 19:00 Ur Barbiturates Screen Presumptive negative 04/30/17 13:48 Ur Phencyclidine Scrn Presumptive negative 04/30/17 13:48 Ur Amphetamines Screen Presumptive negative 04/30/17 13:48 U Benzodiazepines Scrn Presumptive negative 04/30/17 13:48 Urine Cocaine Screen Presumptive negative 04/30/17 13:48 U Marijuana (THC) Screen Presumptive negative 04/30/17 13:48 Drugs of Abuse Note Disclamer 04/30/17 13:48
[2017-05-02 06:53] VITALS: BP 117/63
[2017-05-02 08:40] LABS: BUN/Creatinine Ratio 20; Blood Urea Nitrogen 10 mg/dL (7-17); Calcium 8.4 mg/dL (8.4-10.2); Hemolysis Index 11
[2017-05-02] MEDS ORDERED: POTASSIUM CHLORIDE FEEDTUBE ONE (09:11)
--- NOTE | 2017-05-02 10:34 | Discharge Summary ---
Providers - Providers Date of Admission: 04/30/17 18:55 Attending physician: RENETTA CARDONA MD 04/30/17 13:27 Consult to Dietitian/Nutrition [CONS] Routine Physician Instructions: Reason For Exam: Reason for Consult: Write/Manage Tube Feeding 04/30/17 18:55 Consult to Physician [CONS] Urgent Consulting Provider: HIEN GOOD Reason For Exam: intubated, overdose Notified:: n 05/01/17 09:56 Consult to Mental Health [CONS] Routine Reason For Exam: overdose Place consult to:: psychiatry Notified:: YES Phone number called:: [phone] Time called:: 15:54 Primary care physician: SLATE HANDLER Hospitalization Reason for admission: Sucidal attempt Condition: Stable Pertinent studies: CT head no acute intracranial findings Chest x-ray normal Hospital course: 56-year-old female with a past medical history of hypertension and schizophrenia presents to the hospital with intentional overdose. EMS reports that patient was speaking to them upon arrival. She states around noon she took a handful of Zanaflex and Seroquel. Exact number of tablets unknown. Medication bottles available in the ED. Seroquel 200 mg tablets filled 04/30 30 tab now has 57 tabs in bottle. Zanaflex 4mg filled 04/21 30 tab now has 2 tablets in bottle pt should have about 20-21 tabs left in bottle. Patient became more sedated a route to the hospital as per EMS despite receiving Narcan 2 mg. Patient also hypotensive. IV fluids initiated prior to arrival. Patient was not able to take care of her airways and she was intubated and admitted to ICU. In the morning patient woke up fully and she was extubated and transferred to the floor. Patient denied any suicidal ideation, difficulty of breathing or any pain. Psych was consulted and transferred her to inpatient psych facility. Patient was hemodynamically stable at the time of discharge. Disposition: DC/TX-65 PSY HOSP/PSY UNIT Time spent for discharge: 31 minutes - Discharge Diagnoses (1) Hypokalemia Status: Acute (2) Obtunded Status: Acute (3) Suicide attempt by substance overdose Status: Acute Core Measure Documentation - Palliative Care Palliative Care/ Comfort Measures: Not Applicable - Core Measures Any of the following diagnoses?: none Exam - Physical Exam Narrative exam: Not in cardiopulmonary distress. The patient appeared well nourished and normally developed. Vital signs as documented. Head exam is unremarkable. No scleral icterus . Neck is without jugular venous distension, thyromegaly, or carotid bruits. Lungs are clear to auscultation. Cardiac exam reveals regular rate and Rhythm. First and second heart sounds normal. No murmurs, rubs or gallops. Abdominal exam reveals normal bowel sounds, no masses, no organomegaly and no aortic enlargement. Extremities are nonedematous and both femoral and pedal pulses are normal. ENGROSSER: Alert and oriented 3. No focal weakness. - Constitutional Vitals: Temp Pulse Resp BP Pulse Ox 98.4 F 101 H 17 117/63 97 05/02/17 06:47 05/02/17 06:47 05/02/17 06:47 05/02/17 06:47 05/02/17 06:47 Plan Activity: no restrictions Weight Bearing Status: Full Weight Bearing Diet: regular Follow up with: PRIMARY CAREMD [Primary Care Provider] - 7 Days
--- NOTE | 2017-05-02 10:50 | Progress Note ---
Assessment and Plan 56 y/o female with acute respiratory failure secondary to intentional overdose, suicide attempt. Will sign off. Call if questions. No acute respiratory issues that require any pulmonary follow up noted. Subjective Date of service: 05/02/17 Interval history: Successful transfer out of ICU. Stable on room air. Objective Vital Signs - 12hr 05/02/17 06:47 Temperature 98.4 F Pulse Rate 101 H Respiratory 17 Rate Blood Pressure 117/63 O2 Sat by Pulse 97 Oximetry Constitutional: no acute distress, comatose Eyes: non-icteric ENT: other (orally intubated and sedated) Neck: supple Effort: normal Ascultation: Bilateral: clear Percussion: Bilateral: not dull Cardiovascular: regular rate and rhythm Gastrointestinal: normoactive bowel sounds, soft, non-tender Extremities: no cyanosis, no edema, pink and warm, pulses normal Neurologic: unable to assess CBC and BMP: 05/01/17 02:45 05/02/17 07:38 ABG, PT/INR, D-dimer: ABG POC ABG pH 7.397 (7.35-7.45) 05/01/17 05:41 POC ABG pCO2 43.5 (35-45) 05/01/17 05:41 POC ABG pO2 147 (80-105) H 05/01/17 05:41 POC ABG HCO3 26.8 05/01/17 05:41 POC ABG Total CO2 28 05/01/17 05:41 POC ABG O2 Sat 99 05/01/17 05:41 PT/INR, D-dimer PT 13.2 Sec. (12.2-14.9) 04/30/17 13:50 INR 0.95 (0.87-1.13) 04/30/17 13:50 Abnormal lab findings: Abnormal Labs 04/30/17 04/30/17 04/30/17 13:50 13:50 13:50 WBC 3.9 L RBC 3.27 L MCV 98 H MCH 33 H Lymph % (Auto) 46.5 H [place] % (Auto) 12.2 H Lymph # Seg Neutrophils % 36.2 L Seg Neutrophils # 1.4 L POC ABG pO2 Potassium 3.2 L BUN Creatinine 0.5 L Glucose 123 H POC Glucose Calcium 7.6 L Phosphorus AST 47 H Total Protein 5.7 L Albumin 3.5 L Salicylates < 0.3 L 04/30/17 04/30/17 05/01/17 15:33 15:37 02:45 WBC RBC MCV MCH 33 H Lymph % (Auto) 11.9 L [place] % (Auto) 10.6 H Lymph # 0.7 L Seg Neutrophils % 75.1 H Seg Neutrophils # POC ABG pO2 197 H Potassium BUN Creatinine Glucose POC Glucose Calcium Phosphorus AST Total Protein Albumin Salicylates < 0.3 L 05/01/17 05/01/17 05/01/17 02:45 04:59 05:41 WBC RBC MCV MCH Lymph % (Auto) [place] % (Auto) Lymph # Seg Neutrophils % Seg Neutrophils # POC ABG pO2 147 H Potassium 3.5 L BUN 6 L Creatinine 0.4 L Glucose 115 H POC Glucose Calcium 7.7 L Phosphorus 2.40 L AST Total Protein 6.2 L Albumin Salicylates 05/01/17 05/02/17 09:21 07:38 WBC RBC MCV MCH Lymph % (Auto) [place] % (Auto) Lymph # Seg Neutrophils % Seg Neutrophils # POC ABG pO2 Potassium 3.5 L BUN Creatinine 0.5 L Glucose POC Glucose 116 H Calcium Phosphorus AST Total Protein Albumin Salicylates
== END 2017-05-02 11:20 | DRG 917 ==
LOC: ED 13:05 → CC1 18:55 → 3A 05-01 14:25
PROVIDERS: ADMIT Internal Medicine; ATTEND Internal Medicine
PROC: 5A1935Z Respiratory Ventilation, Less than 24 Consecutive Hours (ICD-10-PCS; principal; 2017-04-30)
PROC: 0BH17EZ Insertion of Endotracheal Airway into Trachea, Via Natural or Artificial Opening (ICD-10-PCS; 2017-04-30)
PROC: 4A033R1 Measurement of Arterial Saturation, Peripheral, Percutaneous Approach (ICD-10-PCS; 2017-04-30)
DX: T42.8X2A Poisoning by antiparkinsonism drugs and other central muscle-tone depressants, intentional self-harm, initial encounter (principal); J96.00 Acute respiratory failure, unspecified whether with hypoxia or hypercapnia; R40.1 Stupor; E87.6 Hypokalemia; Z88.6 Allergy status to analgesic agent; I10 Essential (primary) hypertension; F20.9 Schizophrenia, unspecified; Z90.49 Acquired absence of other specified parts of digestive tract; T43.592A Poisoning by other antipsychotics and neuroleptics, intentional self-harm, initial encounter
CPT/HCPCS: 36415; 36600; 70450; 71045; 80048; 80053; 80307; 80320; 81001; 82550; 82553; 82803; 82962; 83036; 83735; 84100; 84484; 85025; 85610; 85730; 87070; 87205; 93005; 93010; 94002; 94003; 94640; 96361; 96374; 96375; G0480; J0330; J1650; J2704; J3475; J3480; J7030; J7040